=== PATIENT | female | born 1975 | race Hispanic/Latino ===

== ENCOUNTER 2017-10-09 06:29 | Day surgery (SDC) | payer BC ==
[2017-10-03 11:44] VITALS: BMI 21.7
[2017-10-09] MEDS ORDERED: ePHEDrine 50 mg/ml Inj ONE (08:07)
[2017-10-09] MEDS ORDERED: Propofol 10 mg/ml Inj (20 ML) ONE (08:07)
[2017-10-09] MEDS ORDERED: Rocuronium 10 mg/ml (5 ml) ONE (08:08)
[2017-10-09] MEDS ORDERED: Lidocaine 4% (Laryng-O-Jet) Kit MM ONE (08:08)
[2017-10-09] MEDS ORDERED: Succinylcholine 200 mg/10 ml Inj IV ONE (08:08)
[2017-10-09] MEDS ORDERED: Midazolam 2 MG/2 ML VIAL ONE (08:08)
[2017-10-09] MEDS ORDERED: Neostigmine 1:1000 (1 mg/ml) Inj ONE (08:10)
[2017-10-09 08:12] LABS: HEMOGLOBIN 13.6 g/dL (12.0-16.0); MEAN CELL VOLUME 93.9 fl (81.0-99.0); MEAN CORPUSCULAR HEMOGLOBIN 31.7 pg (27.0-31.0); MEAN CORPUSCULAR HGB CONC 33.7 g/dL (33.0-37.0); RBC 4.29 Mil/uL (3.80-5.20); RED CELL DISTRIBUTION WIDTH 13.4 % (11.5-14.5); WHITE BLOOD COUNT 7.2 K/uL (4.8-10.8)
[2017-10-09] MEDS ORDERED: Phenylephrine 10 mg/ml Inj ONE (08:12)
[2017-10-09] MEDS ORDERED: Lactated Ringer's 1,000 ML IV ONE ×3 (08:25→09:00)
[2017-10-09] MEDS: Bupivacaine HCl 0.25% PF (30 ml) Inj ONE ×2 (08:52→09:10)
[2017-10-09] MEDS ORDERED: Dexamethasone 4 mg/1 ml ONE (09:23)
[2017-10-09] MEDS ORDERED: Oxycodone/Acetaminophen 5/325 mg Tab PO PRN (10:28)
[2017-10-09] MEDS ORDERED: Acetaminophen IV 1,000 MG in IV SUPPLIES 0 ML IVPB ONE (10:30)
[2017-10-09] MEDS ORDERED: Lactated Ringer's 1,000 ML IV SCH (10:30)
[2017-10-09 12:36] VITALS: RESP 18
[2017-10-09 15:05] VITALS: O2SAT 98
[2017-10-09 18:20] VITALS: BP 118/78; PULSE 88; TEMP 98.2
--- NOTE | 2017-10-13 15:39 | OP ---
PROCEDURE DATE: 10/09/2017 SURGEON: Loc Barr MD ROLL SKINNER: Maurilio Banegas MD ANESTHESIOLOGIST: Joaquina Toure MD ANESTHETIC: General Endo PREOPERATIVE DIAGNOSES: 1. pelvic pain. 2. abdominal pain. 3. Abnormal uterine bleeding. 4. pelvic endometriosis. 5. History of previous failed medical surgical therapy. 6. Adenomyosis 7. Gastrointestinal and genitourinary symptoms. 8. Rule out interstitial cystitis. POSTOPERATIVE DIAGNOSES: 1. pelvic pain. 2. abdominal pain. 3. Abnormal uterine bleeding. 4. pelvic endometriosis. 5. History of previous failed medical surgical therapy. 6. Adenomyosis 7. Gastrointestinal and genitourinary symptoms. 8. Rule out interstitial cystitis 9: abnormal appendix rule out appendiceal polyp OPERATION PERFORMED: 1. Examination under anesthesia. 2. Video_assisted hysteroscopy. 3. Bilateral ureteral catheterization and injection of IC-Green dye. 4. Cystoscopy. 5. Robotic da Malini laparoscopy. 6. Bila.teral ureterolysis. 7. Multiple peritoneal biopsies and excision of endometriosis Dr. Banegas from General Surgery was consulted to perform the appendectomy procedure and he will dictate that separately. COMPLICATIONS: None. SAMPLES: multiple sent to pathology DRAINS: none ESTIMATED BLOOD LOSS: Minimal. FINDINGS: Genitalia: normal, external genitalia, cervix normal without lesions or polyps. Hysteroscopy showed no evidence of polyps or fibroids Cystoscopy was performed to rule out endometriosis of bladder mucosa and also interstitial cystitis, also injury. The bladder was normal with no evidence of stone, trigonitis or cystitis. Positive jet flow visualized in both ureters. Laparoscopy was normal, gallbladder was normal, liver edges appeared to be normal. Ascending colon and transverse were normal. The appendix appeared to be abnormal with both fibrosis and thickening. Fallopian tubes appeared to have some inflammatory changes of adhesions, but overall appeared to be normal. Both pelvic sidewall appeared to be involved with scar. . There was also evidence of severe retroperitoneal fibrosis in this area. There was also evidence of mild bilateral hydroureters. CONSENT: The patient had been thoroughly evaluated and counseled regarding pros and cons of the procedure, the reasonable alternative, and the possible complications. She understood and accepted the risks involved. Appropriate literature was provided to the patient. The patient was in understanding that given her history and presurgical exam, she knows that she was a high risk and average patient. She accepted all the risks involved and all the questions had been answered to her satisfaction. DESCRIPTION OF PROCEDURE: Initiation of the case: After adequate anesthesia was obtained, the patient was placed in the dorsal lithotomy position with extreme care of placement of the patient without hyperextension or hyperflexing the hips. At this point, the patient was prepped and draped, the surgeon was gowned and gloved. A time- out was taken according to the hospital procedure and the procedure was started. At this point, we performed the cystoscopy and bilateral ureteral catheterization. At this point we performed cystoscopy: A cystoscope was inserted into the bladder, under direct visualization and the bladder was visualized. The bladder was free of lesions, tumors. There was no evidence of interstitial cystitis, and there was only a mild amount of trigonitis. At this point, both ureters were identified and appeared to be in normal anatomical position. At this point, utilizing an open-ended 5-Djiboutian catheter, the left ureter was catheterized all the way to the distal ureter, and a 5 mL of IC-Green were injected into the distal ureter. Similarly, on the contralateral ureter, the ureter was catheterized all the way to the distal ureter, and a 5 mL of IC-Green were injected into the distal ureter. At this point, the stents were removed, and the hysteroscope was removed and a 16- Djiboutian Latif was placed into the bladder. At this point, we proceeded with a hysteroscopy: A speculum was placed in the vagina, and the anterior lip of the cervix was grasped. The cervix was dilated and a hysteroscope was inserted into the cavity. The cavity appeared to be of normal size, showed no evidence of polyps or fibroids At this point, we proceeded with placement of trocars and docking of the Da Malini Xi robot The surgeons were re-gowned and re-gloved, and an open laparoscopy was performed by making an incision below the umbilicus, and the fascia was incised , and the peritoneum was entered in the blunt fashion. The cannula was inserted and the abdomen was insufflated, and under direct visualization 3 additional ports were inserted, left upper quadrant, left mid quadrant and right upper quadrant. At this point, the da Malini Xi robot was brought into the field and docked, and the instruments were inserted under direct visualization. With extreme care not to injure the bowel or any other area. As per the dictation, the upper abdomen appeared to be normal with no evidence of any lesions. The pelvis had the findings described above, which included fibrosis of the posterior cul-de-sac, possible endometriosis . with significant inflammatory changes. At this point, we proceeded with the left ureterolysis. The ureter appeared to dilated and it was clearly identified utilizing fluorescent technology. An incision was made on the peritoneum at the top of the pelvic brim, and incision was then carried down all the way opening the peritoneum and all the way down from the pelvic brim all the way down to the ovarian fossa extending the incision below the ovary. It was a progressive dissection where the ureter was progressively lateralized and the peritoneum medialized, thus freeing the ureter all the way down to the crossing of the uterine vessels. After this was done and the ureter was freed and lateralized and a large area of peritoneum, which had been opened up was excised and sent to pathology. At this point, after ureter had been identified, we were able to elevate the ovary and dissect it from the pelvic side wall in the ovarian fossa At this point, we proceeded with the right ureterolysis. The ureter was identified and again utilizing florescent technology, the retroperitoneal space was entered and a full dissection was performed entering the retroperitoneal space and dissecting the ureter, removing the ureter laterally and the peritoneum medially. A full dissection was performed all the way down to the ovarian fossa, on the crossing of the uterine arteries. A large area of peritoneum containing endometriosis was also dissected and sent to Pathology. At this point, we proceeded with a treatment of endometriosis and excision of endometriosis. On the left hand side, a large area of peritoneum, where containing endometriosis was excised in the ovarian fossa with the upper margin of the excision at the utero_ovarian ligament all the way down to the uterosacral ligament. Large areas of fibrosis were identified in posterior cul-de-sac and the rectovaginal space was affected with endometriosis and severe fibrosis. The rectovaginal area was then dissected and the space was opened, and we were able to dissect the rectum away from the posterior aspect of the cervix. Additional areas of endometriosis were dissected from the posterior aspect of the Uterus. At this point, we proceeded with excision of the endometriosis on the right hand side where similarly in a full excision of endometriosis was performed by performing incision from starting at the right utero_ovarian ligament all the way down to the right uterosacral ligament. At this point, it was checked for hemostasis and appeared to be excellent. All the endometriosis had been excised. At this point, we performed the ablation of inflamed peritoneum, utilizing the J_plasma device. There were inflammatory areas in the posterior aspect of the uterus, which were not endometriotic, but they were purely inflammatory and these were not excisable, as they were not endometriotic. Therefore, we proceeded with ablation of such area utilizing the J plasma. Once this was done, it was checked for hemostasis and appeared to be excellent. The consult was handed to Dr. Banegas, who performed the appendectomy and he will dictate that separately. After this was done, it was checked for hemostasis and appeared to be excellent. The pelvis was irrigated. The da Malini Xi robot was removed. The abdomen desufflated. The instruments were removed. The incisions were closed in layers with 0 PDS for the fascia and 4-0 Monocryl for the skin. The patient was awakened up and taken to recovery room in excellent condition. MTDD
--- NOTE | 2017-10-30 17:19 | PCM.OP ---
Operative Report - Operative Report Date of Surgery/Procedure: 10/09/17 Time of Surgery/Procedure: 14:00 Surgeon: Dr. Maurilio Banegas Cattle Shipper: Dr. Loc Barr Anesthesia/Sedation: general/Dr. Toure Pre-Operative Diagnosis: abdominal pain and endometriosis Post-Operative Diagnosis: same Indication for Surgery: as above Operative Findings: aas above Procedure/Operation Description: 1-Appendectomy. Brief History: this 41 year ols woman was admitted by Dr. Barr with abdominal pain and endometriosis. The robotic procedure had already been initiated by Dr. Barr when he requested an intraoperaticve general surgery consultation. Description of the Procedure: The patient had already had the robotic procedure initated by Dr. Barr ( separate dictation). After jolene control of the robotic console the appendix was [id number] anteriorly and mesentery was dessicated with electrocautery to the base. The appendix ws then ligated with three 3-0 vicryl endoloops, transected, marked and sent separately to pathology. The operation was then turned over to Dr. Barr (separate dictation Dr. Barr). Estimated Blood Loss: 5 cc Complications: none Specimen: appendix Discharge & Condition: stable
== END 2017-10-09 18:40 | disposition home or self-care (01) ==
LOC: H.OPSURG 06:29
PROVIDERS: ATTEND Obstetrics & Gynecology Reproductive Endocrinology
DX: R10.2 Pelvic and perineal pain (principal); N93.9 Abnormal uterine and vaginal bleeding, unspecified; N80.0 Endometriosis of uterus; N80.3 Endometriosis of pelvic peritoneum; N80.5 Endometriosis of intestine
CPT/HCPCS: 36415; 44970; 58563; 58662; 85027; 86850; 86900; 88304; 88305; C1729; J0131; J0330; J0690; J1100; J2001; J2250; J2270; J2370; J2405; J2704; J2710; J3010; J7030; J7120